=== PATIENT | male | born 1980 ===

== ENCOUNTER 2018-03-12 12:31 | Emergency (ER) | payer OTHER ==
[2018-03-12 12:38] VITALS: PULSE 65; RESP 18; TEMP 98.5; O2SAT 99
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
[2018-03-12 15:28] VITALS: BP 141/81
== END 2018-03-12 15:30 | disposition home or self-care (01) ==
LOC: H.ER 12:31
DX: M54.16 Radiculopathy, lumbar region (principal)
CPT/HCPCS: 96372; 99283; J1885; J2930

== ENCOUNTER 2018-03-30 12:23 | Emergency (ER) | payer OTHER ==
[2018-03-30 12:36] VITALS: BP 130/87; PULSE 91; RESP 16; TEMP 98.7; O2SAT 97
== END 2018-03-30 13:42 | disposition left against medical advice (07) ==
LOC: H.ER 12:23
DX: Z02.89 Encounter for other administrative examinations (principal)

== ENCOUNTER 2018-03-30 13:52 | Emergency (ER) | payer OTHER ==
[2018-03-30] MEDS ORDERED: Oxycodone/Acetaminophen 5/325 mg Tab PO STA (14:18)
--- NOTE | 2018-03-30 14:20 | ED PDOC ---
HPI: Back Time Seen by Provider: 03/30/18 14:10 Chief Complaint (Nursing): Back Pain Chief Complaint (Provider): Right lower back, right buttock and History Per: Patient History/Exam Limitations: no limitations Onset/Duration Of Symptoms: Persistent Current Symptoms Are (Timing): Still Present Quality Of Discomfort: "Pain" Exacerbating Factor(s): Turning, Movement, Sitting Additional History Per: Patient Additional Complaint(s): 37yo male, otherwise well, comes to ER reporting right sided buttock pain, radiating to his right leg, which he states is consistent with his sciatica pain. Patient states he has had the pain "for a long time" and was relieved with physical therapy, however over the past 2 months, patient states the pain has worsened. He denies any new injuries, trauma, or heavy lifting which could have exacerbated the pain. He reports the pain is worsened with movement, turning and sitting up; patient denies any lower extremity weakness, numbness, bowel or bladder dysfunction. Otherwise, he offers no additional medical complaints. PMD: None Past Medical History Reviewed: Historical Data, Nursing Documentation, Vital Signs - Medical History PMH: Back Problems (hx back injury June 2017) - Surgical History Surgical History: No Surg Hx - Family History Family History: States: No Known Family Hx - Living Arrangements Living Arrangements: With Family - Social History Current smoker - smoking cessation education provided: No Alcohol: None Drugs: Denies - Home Medications Home Medications: Ambulatory Orders Medication Instructions Recorded Naproxen [Naprosyn] 500 mg PO BID #20 tab 03/12/18 RX: Prednisone 50 mg PO DAILY #5 tablet 03/12/18 diaZEpam [Valium] 5 mg PO Q8 PRN #20 tab 03/12/18 Ibuprofen [Motrin] 600 mg PO Q6H PRN #20 tab 03/30/18 - Allergies Allergies/Adverse Reactions: Allergies Allergy/AdvReac Type Severity Reaction Status Date / Time No Known Allergies Allergy Verified 03/12/18 12:35 Review of Systems ROS Statement: Except As Marked, All Systems Reviewed And Found Negative Constitutional: Negative for: Fever, Chills Cardiovascular: Negative for: Chest Pain Respiratory: Negative for: Shortness of Breath Genitourinary Male: Negative for: Incontinence Musculoskeletal: Positive for: Back Pain, Leg Pain Neurological: Negative for: Weakness, Numbness Physical Exam - Reviewed Nursing Documentation Reviewed: Yes Vital Signs Reviewed: Yes - Physical Exam Appears: Positive for: Non-toxic, Uncomfortable Head Exam: Positive for: ATRAUMATIC, NORMAL INSPECTION, NORMOCEPHALIC Skin: Positive for: Normal Color, Warm, DRY Eye Exam: Positive for: Normal appearance Neck: Positive for: Normal, Painless ROM, Supple Cardiovascular/Chest: Positive for: Regular Rate, Rhythm Respiratory: Positive for: CNT, Normal Breath Sounds Gastrointestinal/Abdominal: Positive for: Normal Exam, Soft Back: Positive for: Other (right buttock/lower back tenderness to palpation) Extremity: Positive for: Normal ROM. Negative for: Deformity, Swelling Neurologic/Psych: Positive for: Alert, Oriented. Negative for: Motor/Sensory Deficits Medical Decision Making Medical Decision Making: Impression: Right lower back pain Plan: * Toradol 30mg IM * Percocet 1tab PO * Reassessment 1500 Patient signed out to Dr. Ramirez pending reassessment, final disposition. Scribe Attestation: Documented by Ana Tavares, acting as a scribe for Rodney Kumar MD. Provider Scribe Attestation: All medical record entries made by the Scribe were at my direction and personally dictated by me. I have reviewed the chart and agree that the record accurately reflects my personal performance of the history, physical exam, medical decision making, and the department course for this patient. I have also personally directed, reviewed, and agree with the discharge instructions and disposition. Disposition - Clinical Impression Clinical Impression: Sciatica - Patient ED Disposition Is Patient to be Admitted: Transfer of Care Counseled Patient/Family Regarding: Studies Performed, Diagnosis - Disposition Disposition: Transfer of Care Disposition Time: 15:00 Condition: STABLE Additional Instructions: follow up with the clinic in 1-2 days return to the ED with any worsening or concerning symptoms Prescriptions: Ibuprofen [Motrin] 600 mg PO Q6H PRN #20 tab PRN Reason: Pain, Moderate (4-7) Instructions: Sciatica (DC) Print Language: MEXICAN
[2018-03-30] MEDS ORDERED: Oxycodone/Acetaminophen 5/325 mg Tab ONE (15:03)
--- NOTE | 2018-03-30 15:39 | ED PDOC ---
Medical Decision Making Medical Decision Makin:00 Patient signed out to me by Dr. Kumar pending reassessment, final disposition. 18:11 On reassessment, patient reports he is feeling improvement in his pain. pt w stable gait. Patient states he does not have a PMD for follow up. Patient to be discharged home, given prescription for pain medications and instructed to follow up at [facility]. Scribe Attestation: Documented by Ana Tavares, acting as a scribe for Sharda Ramirez MD. Provider Scribe Attestation: All medical record entries made by the Scribe were at my direction and personally dictated by me. I have reviewed the chart and agree that the record accurately reflects my personal performance of the history, physical exam, medical decision making, and the department course for this patient. I have also personally directed, reviewed, and agree with the discharge instructions and disposition. Disposition Counseled Patient/Family Regarding: Diagnosis, Need For Followup - Clinical Impression Clinical Impression: Sciatica - POA Present On Arrival: None - Disposition Disposition: Routine/Home Disposition Time: 18:10 Condition: IMPROVED Additional Instructions: follow up with the clinic in 1-2 days return to the ED with any worsening or concerning symptoms Prescriptions: Ibuprofen [Motrin] 600 mg PO Q6H PRN #20 tab PRN Reason: Pain, Moderate (4-7) Instructions: Sciatica (DC) Forms: [employer] (German) Print Language: BHUTAN[place]
[2018-03-30 18:13] VITALS: BP 138/76; PULSE 74; RESP 18; TEMP 98.3; O2SAT 98
== END 2018-03-30 16:20 | disposition home or self-care (01) ==
LOC: H.ER 13:52
DX: M54.31 Sciatica, right side (principal)
CPT/HCPCS: 96372; 99283; J1885